=== PATIENT | male | born 1965 | race African-American/Black ===

== ENCOUNTER 2018-01-24 14:52 | Emergency (ER) | payer SELFPAY ==
[~2018-01-24] VITALS: Ht 172.7 cm; Wt 101.6 kg
[2018-01-24 15:15] VITALS: BP 118/73
[2018-01-24] MEDS ORDERED: Methocarbamol 500mg tab ORAL ONE (15:30)
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
--- NOTE | 2018-01-24 16:38 | Diagnostic Imaging Report ---
Indication: Knee Pain 3 views of the left knee were obtained. Findings: No acute fracture, malalignment, or joint effusion are identified. Joint space is relatively well-maintained. Impression: Negative for acute injury
--- NOTE | 2018-01-24 16:39 | Diagnostic Imaging Report ---
Indication: left shoulder pain Findings: 3 views of the left shoulder were obtained. Alignment of the left shoulder is normal. No acute fracture is identified. Soft tissues are unremarkable. Impression: No acute injury
[2018-01-24] MEDS ORDERED: TYLENOL EXTRA500 MG ORAL (16:44)
[2018-01-24] MEDS ORDERED: ROBAXIN500 MG PO (16:44)
[2018-01-24] MEDS ORDERED: LIDOCAINE700 M1 TP (16:44)
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
[2018-01-24 16:55] VITALS: BP 118/73
== END 2018-01-24 16:56 | disposition home or self-care (01) ==
LOC: EMR 16:16
DX: S46.912A Strain of unspecified muscle, fascia and tendon at shoulder and upper arm level, left arm, initial encounter (principal); S80.02XA Contusion of left knee, initial encounter; S80.01XA Contusion of right knee, initial encounter; V43.62XA Car passenger injured in collision with other type car in traffic accident, initial encounter; Y92.410 Unspecified street and highway as the place of occurrence of the external cause
CPT/HCPCS: 99284